=== PATIENT | male | born 1970 ===

== ENCOUNTER → 2022-08-31 | Outpatient (CLI) | payer OTHER ==
--- NOTE | 2022-08-31 09:02 | MR ---
EXAMINATION TYPE: MR lumbar spine wo con DATE OF EXAM: 08/31/2022 COMPARISON: NONE HISTORY: Low back pain into left buttocks and left leg for 6 months. Spinal stenosis, spondylolisthes is, and vertebrogenic low back pain per order. TECHNIQUE: Multiplanar, multisequence imaging of the lumbar spine is performed without IV contrast. FINDINGS: Sagittal images of the lumbar spine show vertebral body heights to appear satisfactory. Ra ateral pars defect with subtle grade 1 retrolisthesis L4 on L5 Multilevel disc desiccation. Advanced disc space narrowing with vacuum disc phenomenon and heterogeneous Modic type II endplate changes and mild anterior spurring at the L5-S1 level. The conus medullaris is normal in position and signal en ding superior L1 level. Axial images at T12-L1 level appear within normal limits. Axial images at L1-L2 level show mild broad disc bulge minimally effacing anterior thecal sac. Patent bilateral neural foramina. Axial images at L2-L3 level are within normal limits. Axial images L3-L4 level show tiny central disc protrusion minimally effacing the anterior thecal sac . The bilateral neural foramina are patent. Axial images at L4-L5 level shows mild facet arthropathy bilaterally. Spinal canal is preserved. Bila teral neural foramina are patent. Axial images at L5-S1 level show bilateral pars defect. There is mild mild broad disc bulge with spin al canal is preserved as is increased epidural fat. There is mild patellar uropathy bilaterally. Ther e is moderate bilateral inferior neural foraminal narrowing encroaching along the inferior aspect of the exiting bilateral L5 nerve seen on the right sagittal image 13 and on the left sagittal image 4 c orresponding to axial image 4. No suspicious retroperitoneal findings are seen. IMPRESSION: Bilateral pars defect L5 level. L4-L5 spondylolisthesis. Disc herniation L5-S1 level encr oaches on both L5 nerves. Further details are noted as detailed above.
== END | disposition home or self-care (01) ==
LOC: RADMRIMAIN 07:41
PROVIDERS: ATTEND Physical Medicine & Rehabilitation
DX: M47.816 Spondylosis without myelopathy or radiculopathy, lumbar region (principal); M48.062 Spinal stenosis, lumbar region with neurogenic claudication; M43.16 Spondylolisthesis, lumbar region; M51.37 Other intervertebral disc degeneration, lumbosacral region
CPT/HCPCS: 72148